=== PATIENT | female | born 1950 | race Caucasian/White ===

== ENCOUNTER 2024-10-29 14:06 | Outpatient (CLI) | payer MEDICARE, BC | END 2024-10-29 14:07 | disposition home or self-care (01) | LOC: BICMAMMO 14:06 | PROVIDERS: ATTEND Family Medicine | DX: Z12.31 Encounter for screening mammogram for malignant neoplasm of breast (principal); Z78.0 Asymptomatic menopausal state; M85.851 Other specified disorders of bone density and structure, right thigh; M85.852 Other specified disorders of bone density and structure, left thigh | CPT/HCPCS: 77063; 77067; 77080 ==